=== PATIENT | male | born 1985 | race Caucasian/White ===

== ENCOUNTER 2019-02-27 19:43 | Emergency (ER) | payer OTHER ==
[~2019-02-27] VITALS: Ht 180.3 cm; Wt 90.9 kg
[2019-02-27 19:44] VITALS: BP 145/84
[2019-02-27] MEDS ORDERED: EQLTAB93 PO (20:28)
[2019-02-27] MEDS ORDERED: PRED20TA PO (20:28)
[2019-02-27] MEDS ORDERED: predniSONE 20 MG TAB PO ONE (20:30)
[2019-02-27] MEDS ORDERED: CETIRIZINE (ZyrTEC) 10 MG TAB PO ONE (20:30)
== END 2019-02-27 20:44 | disposition home or self-care (01) ==
LOC: M ED 19:43
DX: L23.7 Allergic contact dermatitis due to plants, except food (principal); F17.200 Nicotine dependence, unspecified, uncomplicated

== ENCOUNTER 2019-04-03 19:42 | Emergency (ER) | payer OTHER ==
[~2019-04-03] VITALS: Ht 177.8 cm; Wt 90.9 kg
[2019-04-03 19:42] VITALS: BP 112/75
[~2019-04-03 19:42] MED LIST: EQLTAB93 PO; PRED20TA PO
== END 2019-04-03 19:49 | disposition left against medical advice (07) ==
LOC: M ED 19:42
DX: L98.8 Other specified disorders of the skin and subcutaneous tissue (principal); Z53.21 Procedure and treatment not carried out due to patient leaving prior to being seen by health care provider

== ENCOUNTER → 2019-05-19 | Outpatient (REF) | payer OTHER | LOC: M LAB REF 10:18 | PROVIDERS: ATTEND Physician Assistant Medical | DX: B95.4 Other streptococcus as the cause of diseases classified elsewhere (principal); B95.7 Other staphylococcus as the cause of diseases classified elsewhere ==